=== PATIENT | male | born 2000 | race Caucasian/White ===

== ENCOUNTER 2024-01-19 13:18 | Inpatient (IN) | payer OTHER ==
[2024-01-19 15:50] VITALS: BMI 23.8
[2024-01-19] MEDS ORDERED: MAG HYDROX/AL HYDROX/SIMETH 30 ML UNIT-DOSE CUP PO PRN (16:20)
[2024-01-19] MEDS ORDERED: BENZONATATE 200 MG CAPSULE PO PRN (16:20)
[2024-01-19] MEDS ORDERED: NALOXONE (NARCAN) HCL 4 MG/0.1 ML SPRAY NS PRN (16:20)
[2024-01-19] MEDS ORDERED: guaiFENesin 600 MG TABLET.ER (FP) PO PRN (16:20)
[2024-01-19] MEDS ORDERED: BENZOCAINE/MENTHOL (CHLORASEPTIC ) LOZENGE MM PRN (16:20)
[2024-01-19] MEDS ORDERED: ACETAMINOPHEN 325 MG TABLET (FP) PO PRN (16:20)
[2024-01-19] MEDS ORDERED: LOPERAMIDE HCL 2 MG CAPSULE PO PRN (16:20)
[2024-01-19] MEDS ORDERED: MAGNESIUM HYDROX 2400MG/30ML ORAL SUSPENSION 30 ML CUP PO PRN (16:20)
[2024-01-19] MEDS ORDERED: hydrOXYzine PAMOATE 25 MG CAPSULE (FP) PO PRN (16:20)
[2024-01-19] MEDS ORDERED: POLYETHYLENE GLYCOL (HEALTHYLAX) 3350 17 GM PACKET PO PRN (16:20)
[2024-01-19] MEDS ORDERED: IBUPROFEN 400 MG TABLET (FP) PO PRN (16:20)
[2024-01-19] MEDS ORDERED: IBUPROFEN 600 MG TABLET (FP) PO PRN (16:20)
[2024-01-19] MEDS ORDERED: NICOTINE POLACRILEX 2 MG GUM BUC PRN (16:23)
[2024-01-19] MEDS: NALTREXONE HCL 50 MG TABLET PO ONE (18:40)
[2024-01-19] MEDS: MELATONIN 5 MG TABLETS PO SCH (21:25)
[2024-01-19] MEDS: THIAMINE 100 MG TABLET PO SCH (21:27)
[2024-01-20] MEDS: NALTREXONE HCL 50 MG TABLET PO SCH (11:13)
[2024-01-20] MEDS: PRENATAL VITAMINS W/ FOLIC ACID TABLET (FP) PO SCH (11:13)
[2024-01-20 12:33] LABS: PH,URINE 7.5 (5.0-8.0); URINE APPEARANCE Clear; URINE BILIRUBIN Negative (NEGATIVE); URINE COLOR Yellow; URINE GLUCOSE (UA) Negative (NEGATIVE); URINE KETONE Negative (NEGATIVE); URINE LEUK ESTERASE Negative (NEGATIVE); URINE NITRITE Negative (NEGATIVE); URINE PROTEIN Negative (NEGATIVE); URINE UROBILINOGEN 0.2 mg/dL (0.2-1.0)
[2024-01-20 12:53] LABS: CHLORIDE 106 mmol/L (98-107); POTASSIUM 4.5 mmol/L (3.5-5.1); SODIUM 139 mmol/L (136-145)
[2024-01-20 12:58] LABS: CALCIUM 9.5 mg/dL (8.5-10.1)
[2024-01-20 12:59] LABS: ALBUMIN 3.8 g/dl (3.4-5.0); ANION GAP 6 mmol/L (4-13); BLOOD UREA NITROGEN 12.5 mg/dL (7-18); CO2 27 mmol/L (21-32); GLUCOSE,RANDOM 91 mg/dL (74-106); HEMATOCRIT 44.2 % (35.4-49); HEMOGLOBIN 14.6 GM/dL (11.7-16.9); MCH 32.1 pg (25.7-33.7); MEAN CELL VOLUME 97.2 fl (80-96); MEAN PLT VOLUME 8.2 fl (7.5-11.1); PLATELET COUNT 276 10^3/uL (134-434); RBC 4.55 M/mm3 (4.00-5.60); RDW 13.5 % (11.9-15.9); WHITE BLOOD COUNT 6.4 K/mm3 (4.0-10.0)
[2024-01-20 13:01] LABS: EPI CELLS 3 /uL (0-25.1); HYALINE CASTS 0 /uL (0-3.1); URINE BACTERIA 31 /uL (0-1359); URINE RBC 1 /uL (0-23.9); URINE WBC 12 /uL (0-25.8)
[2024-01-20 13:01] LABS: CREATININE 0.7 mg/dL (0.55-1.3); SGOT/AST 12 U/L (15-37); SGPT/ALT 26 U/L (13-61)
[2024-01-20 13:02] LABS: TOT PROT 6.9 g/dl (6.4-8.2)
[2024-01-20 13:03] LABS: ALK PHOS 57 U/L (45-117)
[2024-01-20] MEDS ORDERED: hydrOXYzine PAMOATE 50 MG CAPSULE (FP) PO PRN (15:35)
[2024-01-20] MEDS: SUVOREXANT 10 MG TABLET PO PRN (21:45)
[2024-01-21 23:16] LABS: SYPHILIS W/ RPR CONF NON-REACTIVE (NONREACTIVE)
[2024-01-22 07:00] VITALS: BP 123/71; PULSE 64; RESP 17; TEMP 97.5
[2024-01-22] MEDS: NALOXONE (NYS OPIOID OVERDOSE PROGRAM) 4 MG/0.1 ML SPRAY NS PRN (16:41)
[2024-01-22] MEDS: NALOXONE (NYS OPIOID OVERDOSE PROGRAM) 4 MG/0.1 ML SPRAY NS SCH (16:43)
== END 2024-01-22 16:35 | disposition left against medical advice (07) | DRG 770 ==
LOC: YASAS 13:18 → Y5N 18:29
PROVIDERS: ADMIT Psychiatry & Neurology Pain Medicine; ATTEND Psychiatry & Neurology Pain Medicine
PROC: HZ42ZZZ Group Counseling for Substance Abuse Treatment, Cognitive-Behavioral (ICD-10-PCS; principal; 2024-01-19)
DX: F14.20 Cocaine dependence, uncomplicated (principal); F12.20 Cannabis dependence, uncomplicated; F17.210 Nicotine dependence, cigarettes, uncomplicated; F31.9 Bipolar disorder, unspecified; F19.282 Other psychoactive substance dependence with psychoactive substance-induced sleep disorder; F19.280 Other psychoactive substance dependence with psychoactive substance-induced anxiety disorder; F19.24 Other psychoactive substance dependence with psychoactive substance-induced mood disorder
CPT/HCPCS: 36415; 80053; 80305; 80307; 81003; 85027; 86780; 86803; 87811; 93005; 93010

== ENCOUNTER 2024-04-28 21:58 | Inpatient (IN) | payer OTHER ==
[2024-04-28 22:21] VITALS: BMI 21.4
[2024-04-28] MEDS ORDERED: ACETAMINOPHEN 325 MG TABLET (FP) PO PRN (22:34)
[2024-04-28] MEDS ORDERED: POLYETHYLENE GLYCOL (HEALTHYLAX) 3350 17 GM PACKET PO PRN (22:34)
[2024-04-28] MEDS ORDERED: BENZONATATE 200 MG CAPSULE PO PRN (22:34)
[2024-04-28] MEDS ORDERED: NICOTINE POLACRILEX 2 MG GUM BUC PRN (22:34)
[2024-04-28] MEDS ORDERED: guaiFENesin 600 MG TABLET.ER (FP) PO PRN (22:34)
[2024-04-28] MEDS ORDERED: IBUPROFEN 400 MG TABLET (FP) PO PRN (22:34)
[2024-04-28] MEDS ORDERED: BENZOCAINE/MENTHOL (CHLORASEPTIC ) LOZENGE MM PRN (22:34)
[2024-04-28] MEDS ORDERED: NICOTINE POLACRILEX 2 MG LOZENGE BC PRN (22:34)
[2024-04-28] MEDS ORDERED: IBUPROFEN 600 MG TABLET (FP) PO PRN (22:34)
[2024-04-28] MEDS ORDERED: MAGNESIUM HYDROX 2400MG/30ML ORAL SUSPENSION 30 ML CUP PO PRN (22:34)
[2024-04-28] MEDS ORDERED: MAG HYDROX/AL HYDROX/SIMETH 30 ML UNIT-DOSE CUP PO PRN (22:34)
[2024-04-28] MEDS ORDERED: LOPERAMIDE HCL 2 MG CAPSULE PO PRN (22:34)
[2024-04-28] MEDS ORDERED: NALOXONE (NARCAN) HCL 4 MG/0.1 ML SPRAY NS PRN (22:34)
[2024-04-29] MEDS ORDERED: MELATONIN 5 MG TABLETS ONE (00:06)
[2024-04-29] MEDS: MELATONIN 5 MG TABLETS PO SCH (00:07)
[2024-04-29] MEDS: PRENATAL VITAMINS W/ FOLIC ACID TABLET (FP) PO SCH (10:09)
[2024-04-29] MEDS: HALOPERIDOL 5 MG TABLET PO SCH (10:09)
[2024-04-29] MEDS: MICONAZOLE NITRATE 28 GM TUBE TP SCH (11:18)
[2024-04-29] MEDS: TRIHEXYPHENIDYL HCL 2 MG TABLET PO SCH (11:18)
[2024-04-29 11:33] LABS: POTASSIUM 4.3 mmol/L (3.5-5.1)
[2024-04-29 11:34] LABS: HEMATOCRIT 41.5 % (35.4-49); HEMOGLOBIN 14.1 GM/dL (11.7-16.9); MEAN PLT VOLUME 8.4 fl (7.5-11.1); PLATELET COUNT 237 10^3/uL (134-434); RBC 4.28 M/mm3 (4.00-5.60); RDW 13.6 % (11.9-15.9); WHITE BLOOD COUNT 6.2 K/mm3 (4.0-10.0)
[2024-04-29 11:35] LABS: BLOOD UREA NITROGEN 20.6 mg/dL (7-18); CALCIUM 9.2 mg/dL (8.5-10.1)
[2024-04-29 11:36] LABS: PH,URINE 6.5 (5.0-8.0); URINE APPEARANCE CLEAR; URINE BILIRUBIN NEGATIVE (NEGATIVE); URINE COLOR YELLOW; URINE GLUCOSE (UA) NEGATIVE (NEGATIVE); URINE KETONE NEGATIVE (NEGATIVE); URINE LEUK ESTERASE NEGATIVE (NEGATIVE); URINE NITRITE NEGATIVE (NEGATIVE); URINE PROTEIN NEGATIVE (NEGATIVE); URINE UROBILINOGEN 0.2 mg/dL (0.2-1.0)
[2024-04-29 11:37] LABS: ALBUMIN 3.8 g/dl (3.4-5.0)
[2024-04-29 11:40] LABS: CREATININE 0.9 mg/dL (0.55-1.3)
[2024-04-29 11:41] LABS: BILIRUBIN,TOTAL 0.4 mg/dL (0.2-1); TOT PROT 6.6 g/dl (6.4-8.2)
[2024-04-29] MEDS: THIAMINE 100 MG TABLET PO SCH (21:22)
[2024-04-29] MEDS ORDERED: traZODone HCL 50 MG TABLET (FP) PO SCH (22:00)
[2024-04-30] MEDS: GABAPENTIN 100 MG CAPSULE PO SCH (10:31)
[2024-04-30] MEDS: risperiDONE 0.5 MG TABLET PO SCH (11:45)
[2024-04-30] MEDS: SUVOREXANT 10 MG TABLET PO PRN (21:43)
[2024-05-02 17:46] VITALS: BP 129/82; PULSE 95; RESP 17; TEMP 98.6
== END 2024-05-02 17:35 | disposition left against medical advice (07) | DRG 770 ==
LOC: YASAS 21:58 → Y3W 23:33
PROVIDERS: ADMIT Psychiatry & Neurology Pain Medicine; ATTEND Psychiatry & Neurology Pain Medicine
PROC: HZ42ZZZ Group Counseling for Substance Abuse Treatment, Cognitive-Behavioral (ICD-10-PCS; principal; 2024-04-28)
DX: F14.20 Cocaine dependence, uncomplicated (principal); F12.20 Cannabis dependence, uncomplicated; F17.210 Nicotine dependence, cigarettes, uncomplicated; F31.9 Bipolar disorder, unspecified; F19.282 Other psychoactive substance dependence with psychoactive substance-induced sleep disorder; B35.4 Tinea corporis; Z59.02 Unsheltered homelessness
CPT/HCPCS: 0241U-QW; 36415; 80053; 80305; 80307; 81003; 85027; 86780; 87811; 93005; 93010